=== PATIENT | male | born 1945 | race Caucasian/White ===

== ENCOUNTER 2020-05-01 07:44 | Observation (INO) | payer MEDICARE, OTHER ==
[2020-05-01] MEDS ORDERED: NITROGLYCERIN OINT 1 INCH/GM PACKET TOPICAL STA (07:52)
[2020-05-01] MEDS ORDERED: ASPIRIN 81 MG PO STA (07:52)
[2020-05-01 08:01] LABS: Glucose,Whole Blood 380 mg/dL (75-99)
--- NOTE | 2020-05-01 08:02 | ED ---
General Adult HPI - General Stated complaint: chest pain Time Seen by Provider: 05/01/20 07:47 Source: patient, EMS, RN notes reviewed Mode of arrival: EMS Limitations: no limitations - History of Present Illness Initial comments: Patient is a pleasant 75-year-old male presenting to the emergency Department with complaints of chest discomfort. Onset of symptoms was around 3 AM. Discomfort feels like indigestion or dull. Patient did have similar symptoms with heart attack just a week ago. Discomfort is mild at this time. No associated dyspnea, nausea, or diaphoresis. No radiation. No leg pain or swelling. - Related Data Home Medications Medication Instructions Recorded Confirmed Albuterol Inhaler [Ventolin Hfa 1 - 2 puff INHALATION RT-Q4H PRN 04/20/20 04/20/20 Inhaler] Aspirin EC [Ecotrin Low Dose] 81 mg PO DAILY 04/20/20 04/20/20 Insulin Detemir [Levemir Flextouch] 45 units SQ DAILY 04/20/20 04/20/20 Losartan Potassium 100 mg PO DAILY 04/20/20 04/20/20 Steriction D 1 tab PO BID 04/20/20 04/20/20 hydroCHLOROthiazide [Hydrodiuril] 25 mg PO DAILY 04/20/20 04/20/20 Previous Rx's Medication Instructions Recorded Clopidogrel [Plavix] 75 mg PO DAILY 30 Days #30 tab 04/22/20 Ezetimibe [Zetia] 10 mg PO DAILY 30 Days #30 tab 04/22/20 Isosorbide Mononitrate ER [Imdur] 30 mg PO DAILY 30 Days #30 04/22/20 tab.er.24h Metoprolol Tartrate [Lopressor] 25 mg PO BID 30 Days #30 tab 04/22/20 Nitroglycerin Sl Tabs [Nitrostat] 0.4 mg SUBLINGUAL Q5M PRN #30 tab 04/22/20 Omeprazole [PriLOSEC] 20 mg PO AC-BRKFST 30 Days #30 cap 04/22/20 Allergies Allergy/AdvReac Type Severity Reaction Status Date / Time caffeine AdvReac Rapid Verified 04/20/20 09:10 Heart Rate glipizide AdvReac Confusion Verified 04/20/20 09:10 insulin aspart AdvReac Hallucinati Verified 04/20/20 09:10 [From Novolog U-100 Insulin ons aspart] Imhdwhp-Edw-Dsg Reductase AdvReac Swelling Verified 04/20/20 09:10 Inhibitor Review of Systems ROS Statement: Those systems with pertinent positive or pertinent negative responses have been documented in the HPI. ROS Other: All systems not noted in ROS Statement are negative. Constitutional: Denies: fever Eyes: Denies: eye pain ENT: Denies: ear pain Respiratory: Denies: cough Cardiovascular: Reports: chest pain Endocrine: Denies: fatigue Gastrointestinal: Denies: abdominal pain Genitourinary: Denies: dysuria Musculoskeletal: Denies: back pain Skin: Denies: rash Neurological: Denies: weakness Past Medical History Past Medical History: Diabetes Mellitus, Hypertension History of Any Multi-Drug Resistant Organisms: None Reported Past Surgical History: Appendectomy Past Psychological History: No Psychological Hx Reported Smoking Status: Former smoker Past Alcohol Use History: None Reported Past Drug Use History: None Reported General Exam Limitations: no limitations General appearance: alert, in no apparent distress Head exam: Present: normocephalic Eye exam: Present: normal appearance, PERRL Neck exam: Present: normal inspection Respiratory exam: Present: normal lung sounds bilaterally. Absent: chest wall tenderness Cardiovascular Exam: Present: regular rate, normal rhythm Expanded Peripheral pulses: 2+: Radial (R), Radial (L), Posterior Tibialis (R), Posterior Tibialis (L) GI/Abdominal exam: Present: soft. Absent: tenderness Extremities exam: Present: normal inspection. Absent: pedal edema, calf tenderness Neurological exam: Present: alert Psychiatric exam: Present: normal affect, normal mood Skin exam: Present: normal color Course Vital Signs 05/01/20 05/01/20 05/01/20 07:48 07:54 08:52 Temperature 98.0 F 98.0 F Pulse Rate 79 76 Pulse Rate [ 84 [place] ] Respiratory 16 16 Rate Blood Pressure 181/90 139/81 O2 Sat by Pulse 98 98 Oximetry EKG Findings - EKG Comments: EKG Findings:: Normal sinus rhythm at 79. W[place] 152. QRS 88. QT 372. QTC 426. Normal axis. Normal QRS. No acute ST change. Medical Decision Making - Medical Decision Making Patient reevaluated and resting comfortably in bed. Patient and family updated on results and plan. Case discussed in detail with Dr. Burdick, who will admit covering for this va patient - Lab Data Result diagrams: 05/01/20 08:02 05/01/20 08:02 Lab Results 05/01/20 05/01/20 05/01/20 Range/Units 07:59 08:02 08:02 WBC 6.1 (3.8-10.6) k/uL RBC 4.01 L (4.30-5.90) m/uL Hgb 11.6 L (13.0-17.5) gm/dL Hct 32.9 L (39.0-53.0) % MCV 82.0 (80.0-100.0) fL MCH 29.0 (25.0-35.0) pg MCHC 35.3 (31.0-37.0) g/dL RDW 14.0 (11.5-15.5) % Plt Count 288 (150-450) k/uL MPV 6.8 Neutrophils % 60 % Lymphocytes % 29 % Monocytes % 6 % Eosinophils % 3 % Basophils % 1 % Neutrophils # 3.7 (1.3-7.7) k/uL Lymphocytes # 1.8 (1.0-4.8) k/uL Monocytes # 0.4 (0-1.0) k/uL Eosinophils # 0.2 (0-0.7) k/uL Basophils # 0.0 (0-0.2) k/uL PT 9.7 (9.0-12.0) sec INR 0.9 (<1.2) APTT 19.8 L (22.0-30.0) sec Sodium (137-145) mmol/L Potassium (3.5-5.1) mmol/L Chloride (98-107) mmol/L Carbon Dioxide (22-30) mmol/L Anion Gap mmol/L BUN (9-20) mg/dL Creatinine (0.66-1.25) mg/dL Est GFR (CKD-EPI)AfAm (>60 ml/min/1.73 sqM) Est GFR (CKD-EPI)NonAf (>60 ml/min/1.73 sqM) Glucose (74-99) mg/dL POC Glucose (mg/dL) 380 H (75-99) mg/dL POC Glu [employer] ID Alirio Martinezil Calcium (8.4-10.2) mg/dL Magnesium (1.6-2.3) mg/dL Total Bilirubin (0.2-1.3) mg/dL AST (17-59) U/L ALT (4-49) U/L Alkaline Phosphatase (38-126) U/L Troponin I (0.000-0.034) ng/mL Total Protein (6.3-8.2) g/dL Albumin (3.5-5.0) g/dL 05/01/20 05/01/20 05/01/20 Range/Units 08:02 08:02 08:57 WBC (3.8-10.6) k/uL RBC (4.30-5.90) m/uL Hgb (13.0-17.5) gm/dL Hct (39.0-53.0) % MCV (80.0-100.0) fL MCH (25.0-35.0) pg MCHC (31.0-37.0) g/dL RDW (11.5-15.5) % Plt Count (150-450) k/uL MPV Neutrophils % % Lymphocytes % % Monocytes % % Eosinophils % % Basophils % % Neutrophils # (1.3-7.7) k/uL Lymphocytes # (1.0-4.8) k/uL Monocytes # (0-1.0) k/uL Eosinophils # (0-0.7) k/uL Basophils # (0-0.2) k/uL PT (9.0-12.0) sec INR (<1.2) APTT (22.0-30.0) sec Sodium 132 L (137-145) mmol/L Potassium 4.2 (3.5-5.1) mmol/L Chloride 96 L (98-107) mmol/L Carbon Dioxide 27 (22-30) mmol/L Anion Gap 9 mmol/L BUN 24 H (9-20) mg/dL Creatinine 0.83 (0.66-1.25) mg/dL Est GFR (CKD-EPI)AfAm >90 (>60 ml/min/1.73 sqM) Est GFR (CKD-EPI)NonAf 87 (>60 ml/min/1.73 sqM) Glucose 366 H (74-99) mg/dL POC Glucose (mg/dL) 382 H (75-99) mg/dL POC Glu [employer] Operator ID Calcium 9.5 (8.4-10.2) mg/dL Magnesium 1.3 L (1.6-2.3) mg/dL Total Bilirubin 0.9 (0.2-1.3) mg/dL AST 21 (17-59) U/L ALT 17 (4-49) U/L Alkaline Phosphatase 97 (38-126) U/L Troponin I <0.012 (0.000-0.034) ng/mL Total Protein 7.0 (6.3-8.2) g/dL Albumin 4.1 (3.5-5.0) g/dL - Radiology Data Radiology results: image reviewed (Chest x-ray shows no acute process) Disposition Clinical Impression: Chest pain Disposition: ADMITTED IP TO THIS HOSP Is patient prescribed a controlled substance at d/c from ED?: No Referrals: [facility],Clinic [Primary Care Provider] - 1-2 days Decision Time: 09:24
[2020-05-01 08:07] LABS: Basophils % (A) 1 %; Eosinophils # (A) 0.2 k/uL (0-0.7); Eosinophils % (A) 3 %; HCT 32.9 % (39.0-53.0); HGB 11.6 gm/dL (13.0-17.5); Lymphocytes # (A) 1.8 k/uL (1.0-4.8); Lymphocytes % (A) 29 %; MCHC 35.3 g/dL (31.0-37.0); Mean Platelet Volume 6.8; Monocytes # (A) 0.4 k/uL (0-1.0); Monocytes % (A) 6 %; Neutrophils # (A) 3.7 k/uL (1.3-7.7); Neutrophils % (A) 60 %; Platelet Count 288 k/uL (150-450); RBC 4.01 m/uL (4.30-5.90); WBC 6.1 k/uL (3.8-10.6)
[2020-05-01 08:19] LABS: ALT 17 U/L (4-49); AST 21 U/L (17-59); African American GFR (CKD) >90 (>60 ml/min/1.73 sqM); Albumin 4.1 g/dL (3.5-5.0); Alkaline Phosphatase 97 U/L (38-126); Anion Gap 9 mmol/L; Blood Urea Nitrogen 24 mg/dL (9-20); Calcium 9.5 mg/dL (8.4-10.2); Carbon Dioxide 27 mmol/L (22-30); Chloride 96 mmol/L (98-107); Glucose 366 mg/dL (74-99); Magnesium 1.3 mg/dL (1.6-2.3); Non-African American GFR(CKD) 87 (>60 ml/min/1.73 sqM); Potassium 4.2 mmol/L (3.5-5.1); Sodium 132 mmol/L (137-145); Total Bilirubin 0.9 mg/dL (0.2-1.3)
--- NOTE | 2020-05-01 08:19 | XR ---
EXAMINATION TYPE: XR chest 2V DATE OF EXAM: 05/01/2020 COMPARISON: Chest x-ray dated 04/20/2020 from outside institution HISTORY: Chest pain TECHNIQUE: Frontal and lateral views of the chest are obtained. FINDINGS: There is no focal air space opacity, pleural effusion, or pneumothorax seen. The cardiac silhouette size is within normal limits. The osseous structures are intact, there is thoracic spond ylosis. There are overlying cardiac leads. IMPRESSION: No acute cardiopulmonary process.
[2020-05-01 08:28] LABS: INR 0.9 (<1.2); Prothrombin Time 9.7 sec (9.0-12.0)
[2020-05-01 08:31] LABS: Partial Thromboplastin Time 19.8 sec (22.0-30.0)
[2020-05-01] MEDS ORDERED: MAGNESIUM OXIDE 400 MG TAB PO STA (08:56)
[2020-05-01 08:59] LABS: Glucose,Whole Blood 382 mg/dL (75-99)
[2020-05-01] MEDS ORDERED: NITROGLYCERIN SL TABS 0.4 MG TAB SUBLINGUAL PRN ×2 (09:24→12:41)
[2020-05-01 10:28] VITALS: RESP 16
[2020-05-01 11:45] LABS: Glucose,Whole Blood 283 mg/dL (75-99)
[2020-05-01] MEDS ORDERED: DICLOFENAC SODIUM GEL 100 GM TUBE TOPICAL PRN (12:41)
[2020-05-01] MEDS ORDERED: ALBUTEROL NEBULIZED 2.5 MG/3 ML INHALATION PRN (12:41)
--- NOTE | 2020-05-01 14:16 | P.HPIM ---
History of Present Illness Patient is a very pleasant 75-year-old male came in with compensative chest discomfort was started today morning it's not exactly pain patient is unable to clearly explain but there is some discomfort mostly in the epigastric area not related to food pain is nonpruritic in nature. It's on and off lasted for a few hours. It's mostly dull indigestion like sensation. Patient denied any shortness of breath lightheadedness. EKG normal sinus rhythm without any acute ST-T wave changes chest x-ray is within normal limits patient had any fever chills. Patient chest pain is nonexertional started when he was today playing video games. Patient had a cardiac catheterization recently which showed significant coronary artery disease in the circumflex, revascularization at times were unsuccessful and medical management was advised at that time. Patient had negative troponins. Review of Systems REVIEW OF SYSTEMS: CONSTITUTIONAL: No fever, no malaise, no fatigue. HEENT: No recent visual problems or hearing problems. Denied any sore throat. CARDIOVASCULAR: No orthopnea, PND, no palpitations, no syncope. PULMONARY: No shortness of breath, no cough, no hemoptysis. GASTROINTESTINAL: No diarrhea, no nausea, no vomiting, no abdominal pain. NEUROLOGICAL: No headaches, no weakness, no numbness. HEMATOLOGICAL: Denies any bleeding or petechiae. GENITOURINARY: Denies any burning micturition, frequency, or urgency. MUSCULOSKELETAL/RHEUMATOLOGICAL: Denies any joint pain, swelling, or any muscle pain. ENDOCRINE: Denies any polyuria or polydipsia. The rest of the 14-point review of systems is negative. Past Medical History Past Medical History: Diabetes Mellitus, Hypertension History of Any Multi-Drug Resistant Organisms: None Reported Past Surgical History: Appendectomy Past Psychological History: No Psychological Hx Reported Smoking Status: Former smoker Past Alcohol Use History: None Reported Past Drug Use History: None Reported Medications and Allergies Home Medications Medication Instructions Recorded Confirmed Type Albuterol Inhaler [Ventolin Hfa 1 - 2 puff INHALATION RT-Q4H PRN 04/20/20 05/01/20 History Inhaler] Aspirin EC [Ecotrin Low Dose] 81 mg PO DAILY 04/20/20 05/01/20 History Insulin Detemir [Levemir Flextouch] 45 units SQ DAILY 04/20/20 05/01/20 History Losartan Potassium 100 mg PO DAILY 04/20/20 05/01/20 History Steriction D 1 tab PO BID 04/20/20 05/01/20 History hydroCHLOROthiazide [Hydrodiuril] 25 mg PO DAILY 04/20/20 05/01/20 History Clopidogrel [Plavix] 75 mg PO DAILY 30 Days #30 tab 04/22/20 05/01/20 Rx Ezetimibe [Zetia] 10 mg PO DAILY 30 Days #30 tab 04/22/20 05/01/20 Rx Isosorbide Mononitrate ER [Imdur] 30 mg PO DAILY 30 Days #30 04/22/20 05/01/20 Rx tab.er.24h Metoprolol Tartrate [Lopressor] 25 mg PO BID 30 Days #30 tab 04/22/20 05/01/20 Rx Nitroglycerin Sl Tabs [Nitrostat] 0.4 mg SUBLINGUAL Q5M PRN #30 tab 04/22/20 05/01/20 Rx Omeprazole [PriLOSEC] 20 mg PO AC-BRKFST 30 Days #30 cap 04/22/20 05/01/20 Rx Diclofenac Sodium Gel [Voltaren 2 gm TOPICAL QID PRN 05/01/20 05/01/20 History Gel] Insulin Regular, Human [NovoLIN R] See Protocol SQ AC-TID 05/01/20 05/01/20 History amLODIPine [Norvasc] 2.5 mg PO DAILY 05/01/20 05/01/20 History Allergies Allergy/AdvReac Type Severity Reaction Status Date / Time caffeine AdvReac Rapid Verified 05/01/20 09:33 Heart Rate glipizide AdvReac Confusion Verified 05/01/20 09:33 insulin aspart AdvReac Hallucinati Verified 05/01/20 09:33 [From Novolog U-100 Insulin ons aspart] [id number] Reductase AdvReac Swelling Verified 05/01/20 09:33 Inhibitor Physical Exam Vitals: Vital Signs Temp Pulse Pulse Pulse Resp BP BP 05/01/20 10:16 98 F 74 16 171/85 05/01/20 09:51 98.0 F 79 18 129/84 05/01/20 08:52 98.0 F 76 16 139/81 05/01/20 07:54 84 05/01/20 07:48 98.0 F 79 16 181/90 Pulse Ox 05/01/20 10:16 99 05/01/20 09:51 97 05/01/20 08:52 98 05/01/20 07:54 05/01/20 07:48 98 Intake and Output 04/30/20 05/01/20 05/01/20 22:59 06:59 14:59 Other: Weight 83.461 kg PHYSICAL EXAMINATION: GENERAL: The patient is alert and oriented x3, not in any acute distress. Well developed, well nourished. HEENT: Pupils are round and equally reacting to light. EOMI. No scleral icterus. No conjunctival pallor. Normocephalic, atraumatic. No pharyngeal erythema. No thyromegaly. CARDIOVASCULAR: S1 and S2 present. No murmurs, rubs, or gallops. PULMONARY: Chest is clear to auscultation, no wheezing or crackles. ABDOMEN: Soft, nontender, nondistended, normoactive bowel sounds. No palpable organomegaly. MUSCULOSKELETAL: No joint swelling or deformity. EXTREMITIES: No cyanosis, clubbing, or pedal edema. NEUROLOGICAL: Gross neurological examination did not reveal any focal deficits. SKIN: No rashes. Results CBC & Chem 7: 05/01/20 08:02 05/01/20 08:02 Labs: Abnormal Lab Results - Last 24 Hours (Table) 05/01/20 05/01/20 05/01/20 Range/Units 07:59 08:02 08:02 RBC 4.01 L (4.30-5.90) m/uL Hgb 11.6 L (13.0-17.5) gm/dL Hct 32.9 L (39.0-53.0) % APTT 19.8 L (22.0-30.0) sec Sodium (137-145) mmol/L Chloride (98-107) mmol/L BUN (9-20) mg/dL Glucose (74-99) mg/dL POC Glucose (mg/dL) 380 H (75-99) mg/dL Magnesium (1.6-2.3) mg/dL 05/01/20 05/01/20 05/01/20 Range/Units 08:02 08:57 11:44 RBC (4.30-5.90) m/uL Hgb (13.0-17.5) gm/dL Hct (39.0-53.0) % APTT (22.0-30.0) sec Sodium 132 L (137-145) mmol/L Chloride 96 L (98-107) mmol/L BUN 24 H (9-20) mg/dL Glucose 366 H (74-99) mg/dL POC Glucose (mg/dL) 382 H 283 H (75-99) mg/dL Magnesium 1.3 L (1.6-2.3) mg/dL Thrombosis Risk Factor Assmnt - Choose All That Apply Any of the Below Risk Factors Present?: Yes Each Factor Represents 1 point: Obesity (BMI >25) Other Risk Factors: Yes Each Risk Factor Represents 2 Points: Age 61-74 years Other congenital or acquired thrombophilia - If yes, enter type in comment: No Thrombosis Risk Factor Assessment Total Risk Factor Score: 3 Thrombosis Risk Factor Assessment Level: Moderate Risk Assessment and Plan Plan: -Chest pain: Appears to be noncardiac and atypical testing his recent cardiac catheterization cardiology will evaluate the patient. Further management as per them. -Hyponatremia secondary to hydrochlorothiazide which will be held -Type 2 diabetes mellitus elevated uncontrolled blood sugars. Patient will be resumed on his home regimen titration depending on blood sugars during this hosp italization -Coronary artery disease with the sig significant atherosclerotic occlusive disease or complete and chronic occlusion of circumflex -Hypertension -Hypomagnesemia magnesium will be replaced -Gastroesophageal reflux disease
[2020-05-01] MEDS: NITROGLYCERIN OINT 1 INCH/GM PACKET TOPICAL SCH ×2 (14:29→17:20)
[2020-05-01] MEDS: MAGNESIUM SULFATE-D5W PMX 1 GM in DEXTROSE/WATER 1 100ML.BAG IVPB SCH ×3 (14:54→17:16)
[2020-05-01 15:12] VITALS: BP 153/77; PULSE 83; TEMP 98.3
--- NOTE | 2020-05-01 17:05 | P.CRDCN ---
History of Present Illness History of present illness: HISTORY OF PRESENTING ILLNESS This is a pleasant 75-year-old male past medical history significant for hypertension, hyperlipidemia, diabetes mellitus. He follows in the office with Dr. Gomez. We have been asked to see in consultation for chest discomfort. Patient was initially transferred from [facility] 04/20 secondary to episode of GERD-type heartburn and was found to have mildly elevated troponin at [facility]. Therefore he was transferred to [facility] where he had an echocardiogram performed which showed normal ejection fraction 55-60% with [id number] mitral regurgitation. He then had a heart catheterization which showed left main 20% stenosis, diagonal to with 70-80% stenosis, left circumflex was not visualized and appeared occluded proximally and a mid RCA 30- 40% stenosis. The circumflex was attempted be wired however this was unsuccessful and at the time patient was not having any active chest pain and therefore further intervention was aborted. Patient was discharged home on aspirin as well as Plavix and Imdur. Patient had been doing fairly well over the last week and a half however then noted a abnormal feeling in his chest, not like pain however just like a little bit of tightness. He states this is different than what he experienced 1.5 weeks ago. He took some nitroglycerin without any improvement. It slowly eased up on its own and it has not reoccurred since admission. Troponins were normal, EKG with normal sinus rhyt hm. DIAGNOSTICS EKG reveals sinus rhythm, no ST or T wave abnormalities. Chest xray no acute cardio pulmonary process. Laboratory reviewed, white blood cell 6.1, hemoglobin 11.6, platelets 288, sodiu m 132, creatinine 0.83, glucose 366, troponin negative 3. Current cardiac medications include Norvasc 2.5 mg daily, aspirin 325 mg daily, Plavix 75 mg daily, Saturday at 10 mg daily, Imdur 30 mg daily, losartan 100 mg daily, Lopressor 25 mg twice a day, nitroglycerin as needed. REVIEW OF SYSTEMS At the time of my exam: CONSTITUTIONAL: Denies fever or chills. CARDIOVASCULAR: + chest pain, no shortness of breath, orthopnea, PND or palpitations. RESPIRATORY: Denies cough. GASTROINTESTINAL: Denies abdominal pain, diarrhea, constipation, nausea or vomiting. MUSCULOSKELETAL: Denies myalgias. NEUROLOGIC: Denies numbness, tingling or weakness. ENDOCRINE: Denies fatigue, weight change, polydipsia or polyurina. GENITOURINARY: Denies burning, hematuria or urgency with micturation. HEMATOLOGIC: Denies history of anemia or bleeding. PHYSICAL EXAMINATION Blood pressure 153/77 heart rate 83 afebrile and maintaining oxygen saturation on room air. CONSTITUTIONAL: No apparent distress. HEENT: Head is normocephalic. Pupils are equal, round. Sclerae anicteric. Mucous membranes of the mouth are moist. No JVD. No carotid bruit. CHEST EXAMINATION: Lungs are clear to auscultation. No chest wall tenderness is noted on palpation or with deep breathing. HEART EXAMINATION: Regular rate and rhythm. S1, S2 heard. No murmurs, gallops or rub. ABDOMEN: Soft, nontender. Positive bowel sounds. EXTREMITIES: 2+ peripheral pulses, no lower extremity edema and no calf tenderness. NEUROLOGIC EXAMINATION: Patient is awake, alert and oriented x3. ASSESSMENT 1. Atypical chest pain which does not seem similar to his prior mild non-STEMI. Troponins normal and do not suspect cardiac in origin 2. Non-STEMI 04/20/2020 with heart catheterization showing 70-80% diagonal 2 stenosis and what appears to be 100% stenosis of circumflex however unable to wire 3. Essential hypertension 4. Diabetes mellitus type 2 5. Anemia PLAN Patient's discomfort appears atypical and feels like a mild tightness not suzanne lar to his prior GERD heartburn-type symptoms with his mild non-STEMI 1.5 weeks ago. Pain has resolved and troponins normal. Do not suspect cardiac etiology. Continue with current antianginals and dual antiplatelets as above. Patient appears stable for discharge home with follow-up with Dr. Gomez on Saturday as scheduled. Past Medical History Past Medical History: Diabetes Mellitus, Hypertension History of Any Multi-Drug Resistant Organisms: None Reported Past Surgical History: Appendectomy Past Psychological History: No Psychological Hx Reported Smoking Status: Former smoker Past Alcohol Use History: None Reported Past Drug Use History: None Reported Medications and Allergies Home Medications Medication Instructions Recorded Confirmed Type Albuterol Inhaler [Ventolin Hfa 1 - 2 puff INHALATION RT-Q4H PRN 04/20/20 05/01/20 History Inhaler] Aspirin EC [Ecotrin Low Dose] 81 mg PO DAILY 04/20/20 05/01/20 History Insulin Detemir [Levemir Flextouch] 45 units SQ DAILY 04/20/20 05/01/20 History Losartan Potassium 100 mg PO DAILY 04/20/20 05/01/20 History Steriction D 1 tab PO BID 04/20/20 05/01/20 History hydroCHLOROthiazide [Hydrodiuril] 25 mg PO DAILY 04/20/20 05/01/20 History Clopidogrel [Plavix] 75 mg PO DAILY 30 Days #30 tab 04/22/20 05/01/20 Rx Ezetimibe [Zetia] 10 mg PO DAILY 30 Days #30 tab 04/22/20 05/01/20 Rx Isosorbide Mononitrate ER [Imdur] 30 mg PO DAILY 30 Days #30 04/22/20 05/01/20 Rx tab.er.24h Metoprolol Tartrate [Lopressor] 25 mg PO BID 30 Days #30 tab 04/22/20 05/01/20 Rx Nitroglycerin Sl Tabs [Nitrostat] 0.4 mg SUBLINGUAL Q5M PRN #30 tab 04/22/20 05/01/20 Rx Omeprazole [PriLOSEC] 20 mg PO AC-BRKFST 30 Days #30 cap 04/22/20 05/01/20 Rx Diclofenac Sodium Gel [Voltaren 2 gm TOPICAL QID PRN 05/01/20 05/01/20 History Gel] Insulin Regular, Human [NovoLIN R] See Protocol SQ AC-TID 05/01/20 05/01/20 History amLODIPine [Norvasc] 2.5 mg PO DAILY 05/01/20 05/01/20 History Allergies Allergy/AdvReac Type Severity Reaction Status Date / Time caffeine AdvReac Rapid Verified 05/01/20 09:33 Heart Rate glipizide AdvReac Confusion Verified 05/01/20 09:33 insulin aspart AdvReac Hallucinati Verified 05/01/20 09:33 [From Novolog U-100 Insulin ons aspart] Udueizk-Eyf-Wrh Reductase AdvReac Swelling Verified 05/01/20 09:33 Inhibitor Physical Exam Vitals: Vital Signs Temp Pulse Pulse Pulse Resp BP BP 05/01/20 15:00 98.3 F 83 16 153/77 05/01/20 10:16 98 F 74 16 171/85 05/01/20 09:51 98.0 F 79 18 129/84 05/01/20 08:52 98.0 F 76 16 139/81 05/01/20 07:54 84 05/01/20 07:48 98.0 F 79 16 181/90 Pulse Ox 05/01/20 15:00 98 05/01/20 10:16 99 05/01/20 09:51 97 05/01/20 08:52 98 05/01/20 07:54 05/01/20 07:48 98 Intake and Output 05/01/20 05/01/20 05/01/20 06:59 14:59 22:59 Other: Weight 83.461 kg Results 05/01/20 08:02 05/01/20 08:02 Cardiac Enzymes 05/01/20 05/01/20 05/01/20 Range/Units 08:02 08:02 10:46 AST 21 (17-59) U/L Troponin I <0.012 <0.012 (0.000-0.034) ng/mL 05/01/20 Range/Units 14:18 AST (17-59) U/L Troponin I <0.012 (0.000-0.034) ng/mL Coagulation 05/01/20 Range/Units 08:02 PT 9.7 (9.0-12.0) sec APTT 19.8 L (22.0-30.0) sec CBC 05/01/20 Range/Units 08:02 WBC 6.1 (3.8-10.6) k/uL RBC 4.01 L (4.30-5.90) m/uL Hgb 11.6 L (13.0-17.5) gm/dL Hct 32.9 L (39.0-53.0) % Plt Count 288 (150-450) k/uL Comprehensive Metabolic Panel 05/01/20 Range/Units 08:02 Sodium 132 L (137-145) mmol/L Potassium 4.2 (3.5-5.1) mmol/L Chloride 96 L (98-107) mmol/L Carbon Dioxide 27 (22-30) mmol/L BUN 24 H (9-20) mg/dL Creatinine 0.83 (0.66-1.25) mg/dL Glucose 366 H (74-99) mg/dL Calcium 9.5 (8.4-10.2) mg/dL AST 21 (17-59) U/L ALT 17 (4-49) U/L Alkaline Phosphatase 97 (38-126) U/L Total Protein 7.0 (6.3-8.2) g/dL Albumin 4.1 (3.5-5.0) g/dL Current Medications Generic Name Dose Route Start Last Admin Trade Name Freq PRN Reason Stop Dose Admin Albuterol Sulfate 2.5 mg 05/01/20 12:41 Albuterol Nebulized 2.5 Mg/3 Ml INHALATION RT-Q4H PRN Shortness Of Breath Amlodipine Besylate 2.5 mg 05/02/20 09:00 Amlodipine 2.5 Mg Tab PO DAILY [facility] Aspirin 325 mg 05/02/20 09:00 Aspirin 325 Mg Tab PO DAILY [facility] Clopidogrel Bisulfate 75 mg 05/02/20 09:00 Clopidogrel 75 Mg Tab PO DAILY [facility] Diclofenac Sodium 2 gm 05/01/20 12:41 Diclofenac Sodium Gel 100 Gm Tube TOPICAL QID PRN Pain Ezetimibe 10 mg 05/02/20 09:00 Ezetimibe 10 Mg Tab PO DAILY [facility] Magnesium Sulfate/Dextrose 1 100 mls @ 100 mls/hr 05/01/20 15:00 05/01/20 16:00 gm/ IV Solution IVPB 05/01/20 17:59 100 mls/hr Q1H [facility] Administration Insulin Detemir 45 unit 05/02/20 07:00 Insulin Detemir (Levemir) 100 Unit/Ml Syr SQ DAILY@0700 [facility] Isosorbide Mononitrate 30 mg 05/02/20 09:00 Isosorbide Mononitrate Er 30 Mg Tab.Er.24h PO DAILY [facility] Losartan Potassium 100 mg 05/02/20 09:00 Losartan 50 Mg Tab PO DAILY [facility] Metoprolol Tartrate 25 mg 05/01/20 21:00 Metoprolol Tartrate 25 Mg Tab PO BID [facility] Nitroglycerin 0.4 mg 05/01/20 09:24 Nitroglycerin Sl Tabs 0.4 Mg Tab SUBLINGUAL Q5M PRN Chest Pain Nitroglycerin 1 inch 05/01/20 12:00 05/01/20 14:29 Nitroglycerin Oint 1 Inch/Gm Packet TOPICAL Not Given Q6HR [facility] Nitroglycerin 0.4 mg 05/01/20 12:41 Nitroglycerin Sl Tabs 0.4 Mg Tab SUBLINGUAL Q5M PRN Chest Pain Pantoprazole Sodium 40 mg 05/02/20 07:30 Pantoprazole 40 Mg Tablet PO AC-BRKFST [facility] Sodium Chloride 10 ml 05/01/20 21:00 Sodium Chloride 0.9% Flush 10 Ml Syringe IV BID [facility] Intake and Output 05/01/20 05/01/20 05/01/20 06:59 14:59 22:59 Other: Weight 83.461 kg Patient Weight 05/02/20 06:59 Weight 83.461 kg 05/01/20 08:02 05/01/20 08:02
[2020-05-01] MEDS ORDERED: METOPROLOL TARTRATE 25 MG TAB PO SCH (21:00)
[2020-05-02] MEDS ORDERED: INSULIN DETEMIR (LEVEMIR) 100 UNIT/ML SYR SQ SCH (07:00)
[2020-05-02] MEDS ORDERED: PANTOPRAZOLE 40 MG TABLET PO SCH (07:30)
[2020-05-02] MEDS ORDERED: LOSARTAN 50 MG TAB PO SCH (09:00)
[2020-05-02] MEDS ORDERED: ISOSORBIDE MONONITRATE ER 30 MG TAB.ER.24H PO SCH (09:00)
[2020-05-02] MEDS ORDERED: CLOPIDOGREL 75 MG TAB PO SCH (09:00)
[2020-05-02] MEDS ORDERED: EZETIMIBE 10 MG TAB PO SCH (09:00)
[2020-05-02] MEDS ORDERED: ASPIRIN 325 MG TAB PO SCH (09:00)
[2020-05-02] MEDS ORDERED: amLODIPine 2.5 MG TAB PO SCH (09:00)
--- NOTE | 2020-05-02 15:25 | P.DS ---
Providers Date of admission: 05/01/20 09:24 Expected date of discharge: 05/01/20 Attending physician: Racquel Burdick Consults: 05/01/20 09:24 Consult Physician Urgent Consulting Provider: Marquise Maria Consult Reason/Comments: cp Do you want consulting provider notified?: Yes Primary care physician: [facility] Course: Patient was later evaluated by cardiology the cleared for discharge patient was subsequently discharged please refer to HPI for further details. Plan - Discharge Summary Discharge Rx Participant: No New Discharge Prescriptions: No Action Insulin Detemir [Levemir Flextouch] 45 units SQ DAILY Aspirin EC [Ecotrin Low Dose] 81 mg PO DAILY hydroCHLOROthiazide [Hydrodiuril] 25 mg PO DAILY Losartan Potassium 100 mg PO DAILY Steriction D 1 tab PO BID Albuterol Inhaler [Ventolin Hfa Inhaler] 1 - 2 puff INHALATION RT-Q4H PRN PRN Reason: Shortness Of Breath Isosorbide Mononitrate ER [Imdur] 30 mg PO DAILY 30 Days #30 tab.er.24h Metoprolol Tartrate [Lopressor] 25 mg PO BID 30 Days #30 tab Nitroglycerin Sl Tabs [Nitrostat] 0.4 mg SUBLINGUAL Q5M PRN #30 tab PRN Reason: Chest Pain Clopidogrel [Plavix] 75 mg PO DAILY 30 Days #30 tab Ezetimibe [Zetia] 10 mg PO DAILY 30 Days #30 tab Omeprazole [PriLOSEC] 20 mg PO AC-BRKFST 30 Days #30 cap Insulin Regular, Human [NovoLIN R] See Protocol SQ AC-TID Diclofenac Sodium Gel [Voltaren Gel] 2 gm TOPICAL QID PRN PRN Reason: Pain amLODIPine [Norvasc] 2.5 mg PO DAILY Discharge Medication List Albuterol Inhaler [Ventolin Hfa Inhaler] 1 - 2 puff INHALATION RT-Q4H PRN 04/20/20 [History] Aspirin EC [Ecotrin Low Dose] 81 mg PO DAILY 04/20/20 [History] Insulin Detemir [Levemir Flextouch] 45 units SQ DAILY 04/20/20 [History] Losartan Potassium 100 mg PO DAILY 04/20/20 [History] Steriction D 1 tab PO BID 04/20/20 [History] hydroCHLOROthiazide [Hydrodiuril] 25 mg PO DAILY 04/20/20 [History] Clopidogrel [Plavix] 75 mg PO DAILY 30 Days #30 tab 04/22/20 [Rx] Ezetimibe [Zetia] 10 mg PO DAILY 30 Days #30 tab 04/22/20 [Rx] Isosorbide Mononitrate ER [Imdur] 30 mg PO DAILY 30 Days #30 tab.er.24h 04/22/20 [Rx] Metoprolol Tartrate [Lopressor] 25 mg PO BID 30 Days #30 tab 04/22/20 [Rx] Nitroglycerin Sl Tabs [Nitrostat] 0.4 mg SUBLINGUAL Q5M PRN #30 tab 04/22/20 [Rx] Omeprazole [PriLOSEC] 20 mg PO AC-BRKFST 30 Days #30 cap 04/22/20 [Rx] Diclofenac Sodium Gel [Voltaren Gel] 2 gm TOPICAL QID PRN 05/01/20 [History] Insulin Regular, Human [NovoLIN R] See Protocol SQ AC-TID 05/01/20 [History] amLODIPine [Norvasc] 2.5 mg PO DAILY 05/01/20 [History] Follow up Appointment(s)/Referral(s): Keven Gomez MD [Family Provider] - 1 Week (Keep your appointment on Saturday.) [facility] [Primary Care Provider] - 1-2 days (Office is currently closed, please call Saturday am to schedule your appointment.) Patient Instructions/Handouts: Chest Pain (DC) Discharge Disposition: HOME SELF-CARE
== END 2020-05-01 18:32 | disposition home or self-care (01) ==
LOC: EC 07:44 → SUPCPDRO 07:44 → 1SOBS 09:24
PROVIDERS: ADMIT Internal Medicine; ATTEND Internal Medicine
DX: R07.89 Other chest pain (principal); I21.4 Non-ST elevation (NSTEMI) myocardial infarction; E87.1 Hypo-osmolality and hyponatremia; T50.2X5A Adverse effect of carbonic-anhydrase inhibitors, benzothiadiazides and other diuretics, initial encounter; E83.42 Hypomagnesemia; E78.5 Hyperlipidemia, unspecified; I25.10 Atherosclerotic heart disease of native coronary artery without angina pectoris; E11.65 Type 2 diabetes mellitus with hyperglycemia; I10 Essential (primary) hypertension; I34.0 Nonrheumatic mitral (valve) insufficiency; K21.9 Gastro-esophageal reflux disease without esophagitis; M47.814 Spondylosis without myelopathy or radiculopathy, thoracic region; E66.9 Obesity, unspecified; Z68.28 Body mass index [BMI] 28.0-28.9, adult; R79.89 Other specified abnormal findings of blood chemistry; D64.9 Anemia, unspecified; Z79.82 Long term (current) use of aspirin; Z79.4 Long term (current) use of insulin; Z79.02 Long term (current) use of antithrombotics/antiplatelets; Z79.899 Other long term (current) drug therapy; Z88.8 Allergy status to other drugs, medicaments and biological substances; Z91.048 Other nonmedicinal substance allergy status; Z90.49 Acquired absence of other specified parts of digestive tract; Z87.891 Personal history of nicotine dependence
CPT/HCPCS: 96365; 96366; 99285; 36415; 93005; 80053; 83735; 84484; 85025; 85610; 85730; 71046; G0378; J3475

== ENCOUNTER → 2022-04-12 | Outpatient (CLI) | payer MEDICARE, OTHER ==
[2022-04-12 08:43] VITALS: BP 174/82; PULSE 81; RESP 18; TEMP 98.1
--- NOTE | 2022-04-12 09:23 | P.PAINCN ---
History of Present Illness - Reason for Consult Consult date: 04/12/22 Lumbar back pain - Chief Complaint Lumbar back pain - History of Present Illness Mr. Mahmood is a 77 year old pleasant male patient came to [facility] pain management clinic for initial evaluation for lumbar back pain, and pain radiating to right lower extremity. Patient described pain started more than a year ago. She also had a history of fall on his back in 1998 , as per patient he recovered completely from that injury. Patient described pain as aching, sharp, throbbing, spasm type of pain. Patient rated pain 7-8 out of 10 in severity. Which may very her pain level from 6-10 out of 10 in severity. His lumbar back pain radiating from lumbar back to the right lower extremity. Denied any weakness. Pain increases with activities, and standing, walking, sitting, bending forward, and lifting. Pain decreases with medications to some extent and exercises. Overall patient activities decreased secondary to pain. Pain medications helping to some extent. Because of the pain patient is feeling lack of sleep and interest and energy. Denied any bowel or bladder problems. Patient denies any adverse effects to medications. He is using walker as a walking aids for walking. Complaining depression secondary to pain but denied any suicidal/homicidal tendency at this time. Sleep pattern -some days altered secondary to pain. There are no signs of narcotic diversion/misuse/overuse and no new-onset weakness, bowel/bladder incontinence, saddle anesthesia, or no red flag symptoms. Conservative treatment tried: Lmyu-jbe-xpshphx medications, and Tylenol 3 Nceb-nis-togtzcu lidocaine patch Ice, and heat Physical therapy exercises, exercises at home as tolerated TENS unit's- helpful to some extent Chiropractic therapy- never tried Review of Systems All systems: negative Eyes: denies blurred vision, denies pain Ears, nose, mouth and throat: Denies headache, Denies sore throat Cardiovascular: Denies chest pain, Denies shortness of breath Respiratory: Denies cough Gastrointestinal: Denies abdominal pain, Denies diarrhea, Denies nausea, Denies vomiting Musculoskeletal: Reports low back pain, Reports shooting leg pain, Denies myalgias Integumentary: Denies pruritus, Denies rash Neurological: Denies numbness, Denies weakness Psychiatric: Denies anxiety Endocrine: Denies fatigue, Denies weight change Past Medical History Past Medical History: Diabetes Mellitus, Hypertension History of Any Multi-Drug Resistant Organisms: None Reported Past Surgical History: Appendectomy Past Psychological History: No Psychological Hx Reported Smoking Status: Former smoker Past Alcohol Use History: None Reported Past Drug Use History: None Reported Medications and Allergies Home Medications Medication Instructions Recorded Confirmed Type Albuterol Inhaler [Ventolin Hfa 1 - 2 puff INHALATION RT-Q4H PRN 04/20/20 05/01/20 History Inhaler] Aspirin EC [Ecotrin Low Dose] 81 mg PO DAILY 04/20/20 05/01/20 History Insulin Detemir [Levemir Flextouch 45 units SQ DAILY 04/20/20 05/01/20 History Pen] Losartan Potassium 100 mg PO DAILY 04/20/20 05/01/20 History Steriction D 1 tab PO BID 04/20/20 05/01/20 History hydroCHLOROthiazide [Hydrodiuril] 25 mg PO DAILY 04/20/20 05/01/20 History Clopidogrel [Plavix] 75 mg PO DAILY 30 Days #30 tab 04/22/20 05/01/20 Rx Ezetimibe [Zetia] 10 mg PO DAILY 30 Days #30 tab 04/22/20 05/01/20 Rx Isosorbide Mononitrate ER [Imdur] 30 mg PO DAILY 30 Days #30 04/22/20 05/01/20 Rx tab.er.24h Metoprolol Tartrate [Lopressor] 25 mg PO BID 30 Days #30 tab 04/22/20 05/01/20 Rx Nitroglycerin Sl Tabs [Nitrostat] 0.4 mg SUBLINGUAL Q5M PRN #30 tab 04/22/20 05/01/20 Rx Omeprazole [PriLOSEC] 20 mg PO AC-BRKFST 30 Days #30 cap 04/22/20 05/01/20 Rx Diclofenac Sodium Gel [Voltaren 2 gm TOPICAL QID PRN 05/01/20 05/01/20 History Gel] Insulin Regular, Human [NovoLIN R] See Protocol SQ AC-TID 05/01/20 05/01/20 History amLODIPine [Norvasc] 2.5 mg PO DAILY 05/01/20 05/01/20 History Allergies Allergy/AdvReac Type Severity Reaction Status Date / Time caffeine AdvReac Rapid Verified 04/12/22 08:44 Heart Rate glipizide AdvReac Confusion Verified 04/12/22 08:44 insulin aspart AdvReac Hallucinati Verified 04/12/22 08:44 [From Novolog U-100 Insulin ons aspart] Ybvcpfi-HQH-[id number] Reductase AdvReac Swelling Verified 04/12/22 08:44 Inhibitor [Ammdmsk-Rhb-Vss Reductase Inhibitor] Physical Exam General: Well-developed, well-nourished, no acute distress HEENT: Normocephalic, and atraumatic Neck: Supple, no neck swelling Psychiatric: Appropriate mood, and affect [employer] 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 Sensation grossly intact Lower extremity: Normal strength, and decreased range of motion secondary to pain on right lower extremity. Sensation grossly intact. Dorsalis pedis pulse 2+ , bilateral knee reflex, and ankle reflex 2+ Lumbar spine: Paravertebral tenderness: positive on right side Lumbar facet load test : positive on right side Sacroiliac joint tenderness: Positive on right side Thigh thrust test: Positive on right side SI joint compression test: Positive on right side Fabere test: Positive on the right side [ ] Results Comments: 4 review lumbosacral x-ray done on 11/08/2021 showed At disc degenerative disease, and facet arthropathy throughout the visualized spine. There is a grade 1 degenerative spondylolisthesis at L4-L5. Chronic anterior wedge deformity of L1 vertebral body. There is no discrete bony pathology. Lumbar spine MRI without contrast done on 02/24/2022 showed Multilevel spondylotic the degenerative changes at L1-L2, L2-L3 and L3-L4, L4- L5, and L5-S1 levels. More worse at L2-L3 with severe narrowing of the spinal canal, moderate narrowing at L4-L5 level. Very degrees of foraminal stenosis worst at L4-L5 with severe left, and moderate right foraminal narrowing Assessment and Plan Assessment: Lumbar spondylosis without myelopathy, and lumbar radiculopathy Lumbar spinal canal stenosis Lumbar neural foraminal narrowing more worse at L4-L5 level Right side sacroiliac joint dysfunction Right side hip arthralgia Plan: #1 Diagnoses, prognosis, and multiple treatment options including but not li mited to physical therapy, interventional therapy, adjunct medication therapy, narcotic medication, and surgical options were discussed with the patient. And all questions were answered to the patient's satisfaction. #2 treatment plan agreement : Patient was thoroughly discussed regarding the treatment options, alternatives, and importance of exercises as tolerated. Patient clearly understood. #3 Patient was counseled on importance of regular exercise. Including kelvin chi, aerobic exercises as tolerated. Which helps for chronic pain, and overall well- being. #4 investigations: MAPS- reviewed , urine drug test- none #5 diagnostic tests: Right hip x-rays at [facility], as per patient he is going to get his right hip x-ray, and MRI #6 consultation : None at this time # 7 interventional procedures: Right sided L4-L5 lumbar epidural steroid injection . Procedure, complications, alternatives discussed with the patient. #8 medications #1 Tylenol 3 one tablet per day as needed for pain from [facility] Medication side effects, complications, long-term consequences discussed with the patient. Patient recommended to contact the pain clinic if noticed any issues with given medications. #9 morphine milligrams equivalents dose ( MME) per day: 0 from the pain clinic. # 10 TENS unit's, and percussion massage device #11 disposition: scheduled to follow up with pain clinic in 4 weeks duration. Time with Patient: Less than 30 PQRS Measure Charge Sheet Measure #130: Documentation of Current Meds in Medical Chart: Patient's medications documented in chart Measure #226: Tobacco Use: Screen & Cessation Intervention: Pt not a tobacco user Measure #111: Pneumonia Vaccination: Pneumococcal vaccine administered or previously received Measure #47: Advance Care Plan: Advance care planning discussed & documented, plan or surrogate given Measure #412: Opioid Treatment Agreement: No documentation of signed opioid treatment agreement Measure #408: Opioid Therapy Follow-up Evaluation: Patient had NO f/u eval minimum every 3 months during opioid therapy Measure #317: Preventitive Care & Scrn High Bld Press & F/U: Pre-hypertensive or hypertensive BP documented, pt will f/u with PCP Measure #128: Body Mass Index (BMI) Screening & Follow-up: BMI documented within normal parameters (he and I have represcribed him and uses WHEN he is is down in a recliner or lying down. He seasonal need is to be quite normal) Measure #131: Pain Assessment & Follow-up: Pain positive & plan documented Measure #431: Unhealthy Alcohol Use Preventative Care & Scrn: Patient not identified as an unhealthy alcohol user - Pain Location Right Lower Back Non-Pharmacological Interventions: Heat, Ice, Inactivity, Massage, Physical Therapy, Sitting Pharmacological Interventions: Scheduled Medication, Topical Medication Home Medications: Ambulatory Orders Albuterol Inhaler [Ventolin Hfa Inhaler] 1 - 2 puff INHALATION RT-Q4H PRN 04/20/20 Aspirin EC [Ecotrin Low Dose] 81 mg PO DAILY 04/20/20 Insulin Detemir [Levemir Flextouch Pen] 45 units SQ DAILY 04/20/20 Losartan Potassium 100 mg PO DAILY 04/20/20 Steriction D 1 tab PO BID 04/20/20 hydroCHLOROthiazide [Hydrodiuril] 25 mg PO DAILY 04/20/20 Clopidogrel [Plavix] 75 mg PO DAILY 30 Days #30 tab 04/22/20 Ezetimibe [Zetia] 10 mg PO DAILY 30 Days #30 tab 04/22/20 Isosorbide Mononitrate ER [Imdur] 30 mg PO DAILY 30 Days #30 tab.er.24h 04/22/20 Metoprolol Tartrate [Lopressor] 25 mg PO BID 30 Days #30 tab 04/22/20 Nitroglycerin Sl Tabs [Nitrostat] 0.4 mg SUBLINGUAL Q5M PRN #30 tab 04/22/20 Omeprazole [PriLOSEC] 20 mg PO AC-BRKFST 30 Days #30 cap 04/22/20 Diclofenac Sodium Gel [Voltaren Gel] 2 gm TOPICAL QID PRN 05/01/20 Insulin Regular, Human [NovoLIN R] See Protocol SQ AC-TID 05/01/20 amLODIPine [Norvasc] 2.5 mg PO DAILY 05/01/20
== END ==
LOC: PNWHC3 08:06
DX: M47.26 Other spondylosis with radiculopathy, lumbar region (principal); M48.061 Spinal stenosis, lumbar region without neurogenic claudication; M46.1 Sacroiliitis, not elsewhere classified; M25.551 Pain in right hip; E11.9 Type 2 diabetes mellitus without complications; I10 Essential (primary) hypertension; Z79.4 Long term (current) use of insulin; Z79.899 Other long term (current) drug therapy; Z88.8 Allergy status to other drugs, medicaments and biological substances; Z91.018 Allergy to other foods
CPT/HCPCS: 99211

== ENCOUNTER 2022-07-17 09:27 | Day surgery (SDC) | payer OTHER ==
[~2022-07-17 09:27] MED LIST: LACTATED RINGERS 1,000 ML IV SCH; LIDOCAINE 1% (10MG/ML) FOR IV START INTRADERMA PRN
[2022-07-17 10:17] VITALS: RESP 16; TEMP 97.8
[2022-07-17 10:21] LABS: Glucose,Whole Blood 124 mg/dL (70-110)
[2022-07-17] MEDS ORDERED: IOPAMIDOL M200 10 ML VIAL ONE (10:31)
[2022-07-17] MEDS ORDERED: methylPREDNISolone ACETATE 40 MG/ML 1 ML VIAL ONE (10:31)
--- NOTE | 2022-07-17 10:40 | P.PCN ---
Date of Procedure: 07/17/22 Procedure(s) Performed: PREOPERATIVE DIAGNOSIS: 1- Lumbar Degenerative Disc Diseases 2-Lumbar spondylosis with Facet arthropathy without myelopathy. 3-lumbar spinal stenosis POSTOPERATIVE DIAGNOSIS: 1-lumbar degenerative disc disease. 2-lumbar spondylosis with facet arthropathy without myelopathy. 3-lumbar spinal stenosis. PROCEDURE 1. Lumbar epidural steroid injection under fluoroscopic guidance at the L4-5 level. ( right paramedial approach ) (Fluoroscopy imaging was available in radiology department) 2. Lumbar epidurogram. ANESTHESIA: Local anesthesia with lidocaine 1% 3 mL only EBL: Minimal PROCEDURE INDICATION: The patient with low back pain and radiculitis symptoms unresponsive to conservative treatment. Fluoroscopy was used to optimize visualization of the needle placement and to maximize safety. PROCEDURE DESCRIPTION / TECHNIQUE: The patient was seen and identified in the preoperative area. Risks, benefits, complications including but not limited to infections ,bleeding ,allergic reaction to the medications ,nerve damage and not complete pain releife , and alternatives were discussed with the patient. The patient agreed to proceed with the procedure and signed the consent. IV was started, and vital signs were stable. Patient was taken to the OR and time out was completed. The patient was placed in the prone position on procedure table and a pillow was placed under the abdomen to reduce lumbar lordosis. The lumbosacral area was prepped and draped in the usual sterile fashion.ere closely monitored during the procedure. Vital signs was monitered during the entire procedure. Using anterior-posterior fluoroscopy, the L4-5 interlaminar space was identified and the skin over this site was marked and then infiltrated with 1% lidocaine subcutaneously. Subsequently, a 20-gauge Tuohy epidural needle was inserted ( right paramedial approach ) and advanced toward the epidural space using the ``Loss of resistance technique and guided by AP and lateral fluoroscopy. The correct needle position in the epidural space was verified with the injection of 2 mL of the water soluble contrast dye Isovue 200 contrast and observing an excellent epidurogram with the epidural spread of the dye, after negative aspiration for blood and CSF and in the absence of paresthesias. Again after negative aspiration, a 6 ml mixture containing 40 mg of Depo-medrol ( Preservetive Free ), and 2 ml of preservative free Normal Saline, and 2 ml of preservative free lidocaine 1% solution was injected and a washout of epidurogram was seen. Needle was withdrawn intact, skin was cleansed, and bandages were applied. COMPLICATIONS: None DISPOSITION / PLANS: The patient was placed in a supine position and transferred to the recovery area in a stable condition for observation. There was no evidence of lower extremity motor or sensory deficit after the procedure. Patient was discharged from the recovery room after meeting discharge criteria. Home discharge instructions were given to the patient by the staff. The patient was reexamined prior to discharge. The patient will schedule a follow up in the clinic in 2-4 weeks.
--- NOTE | 2022-07-17 10:56 | FL ---
Intraoperative/procedural fluoroscopic services were provided for lumbar epidural steroid injection. Total fluoroscopy time is 2 seconds with a total of 1 submitted image to PACS. Total DAP [id number]. Ple ase see the operative note for further details.
[2022-07-17 11:03] VITALS: BP 148/80; PULSE 83
== END 2022-07-17 11:02 | disposition home or self-care (01) ==
LOC: ORPAIN 09:27
PROVIDERS: ATTEND Specialist
DX: M51.16 Intervertebral disc disorders with radiculopathy, lumbar region (principal); M47.26 Other spondylosis with radiculopathy, lumbar region; M48.061 Spinal stenosis, lumbar region without neurogenic claudication; Z88.8 Allergy status to other drugs, medicaments and biological substances
CPT/HCPCS: 62323; J1030; Q9966

== ENCOUNTER → 2022-08-13 | Outpatient (CLI) | payer OTHER ==
[2022-08-13 13:02] VITALS: BP 154/78; PULSE 97; RESP 18; TEMP 97.6
--- NOTE | 2022-08-13 15:15 | P.PAINPG ---
PQRS Measure Charge Sheet Comment: A 77 yr old male w at side with a history of severe and chronic LBP x yrs secondary to lumbar DDD and spondylosis with facet arthropathy without myelopathy presents today for evaluation s/p R paramedian MARK L4-L5. Pt states he received 0% pain relief. Pain level is provoked at 9 /10 in intensity, cons tant, localized in the lumbar spine, sorep in character w shooting towards the R hip and RLE. Pain is provoked by walking for periods of 10 min or more. Pain is alleviated with PT integrated w massage x 6 wks in Fall 2021, chiropractic treatments weekly x 1 mo in Jun 2022 without relief, heat, hot showers, medications, topical, repositioning and rest. Interventional pain procedures completed include MARK L4-L5 x1 Patient is currently on Ibu Patient denies any side effects of the medication(s), denies excessive drowsiness or sleepiness, denies suicidal ideation and reports that the current pain medication is helping to control the pain and improve activities of daily living. Patient denies any motor or sensory deficits. Patient denies any fever or night sweats, denies any change in the bowel movements or urination. Physical Examination: -Constitutional: Cooperative. Not in acute distress . - Neurologic: Cranial nerve II to XII intact. No focal neurological deficits. - Psychatric: Alert & oriented x 3. Matching mood & appropriate affect. Judgment and insight intact. - Musculoskeletal: Cervical spine: Muscle bulk/ tone/ strength in the bilateral upper extremities normal Vertebral body tenderness to palpation over Spurling test positive Distraction test positive Facet loading test positive TTP Thoracic spine Muscle bulk / tone/ strength in the bilateral paraspinal muscles normal Vertebral body tender to palpation over Facet loading test positive TTP Lumbar spine: Motor bulk/ tone/ strength lower extremities , thigh and legs : 5/5 Deep tendon reflexes : Normal Knee Jerk. Normal Ankle Jerk . Vertebral body tenderness to palpation over L4 Lumbar Facet Loading Test positive Straight Leg Raise: positive at 30 degrees right side/ left side Gaenslen's Test positive Sacral spine : Severe tenderness over the Sacroiliac joint: right side / left side Range of motion: Flexion of the lumbar spine <60 degrees Range of motion: Extension of the lumbar spine <20 degrees Gaenslen's Test positive right side / left side Leonard test: positive right side / left side Thigh Thrust Test positive right side / left side Sacral Thrust Test positive right side / left side Assessment and plan: Chronic LBP secondary to lumbar DDD, spondylosis with facet arthropathy without myelopathy Recommendation of R TFESI L4-L5 #2. May need a series of injections for optimal pain relief. Risks, benefits of procedure discussed and pt verbalized understanding. Admits to anticoagulant use or medical history of diabetes. Protocol for discontinuation/ continuation of medications hiram procedure discussed. All questions answered. I have spent less than 30 minutes on patient care today. Dr Corona was available by phone for the evaluation of this patient. The time was used to review the medical records including relevant urine studies and Prescription history (MAPs), review of the available imaging, evaluation and examination of the patient, coordination of care with the medical staff and if applicable referring physicians, as well as creation of the medical record PQRS Narrative: Hx Alcohol Use (MH) No Home Medications: Ambulatory Orders Albuterol Inhaler [Ventolin Hfa Inhaler] 1 - 2 puff INHALATION RT-Q4H PRN 04/20/20 Insulin Detemir [Levemir Flextouch Pen] 30 units SQ BID 04/20/20 Losartan Potassium 100 mg PO DAILY 04/20/20 hydroCHLOROthiazide [Hydrodiuril] 25 mg PO DAILY 04/20/20 Clopidogrel [Plavix] 75 mg PO DAILY 30 Days #30 tab 04/22/20 Ezetimibe [Zetia] 10 mg PO DAILY 30 Days #30 tab 04/22/20 Isosorbide Mononitrate ER [Imdur] 30 mg PO DAILY 30 Days #30 tab.er.24h 04/22/20 Diclofenac Sodium Gel [Voltaren Gel] 2 gm TOPICAL QID PRN 05/01/20 amLODIPine [Norvasc] 5 mg PO DAILY 05/01/20 Acetaminophen-Codeine 300-30mg [Tylenol w/codeine #3] 1 - 2 tab PO Q4-6H PRN 07/16/22 INSULIN ASPART (NovoLOG) [NovoLOG (formulary)] 10 unit SQ AC-BID 07/16/22 Metoprolol Succinate (ER) [Toprol Xl] 25 mg PO DAILY 07/16/22 Omeprazole [PriLOSEC] 20 mg PO AC-BRKFST PRN 07/16/22 Controlled Substance Measures - Controlled Substance Measures Is patient prescribed a controlled substance at discharge?: No
== END ==
LOC: PNWHC3 11:55
PROVIDERS: ATTEND Specialist
DX: M51.36 Other intervertebral disc degeneration, lumbar region (principal); M47.816 Spondylosis without myelopathy or radiculopathy, lumbar region; G89.29 Other chronic pain; Z88.8 Allergy status to other drugs, medicaments and biological substances
CPT/HCPCS: 99211

== ENCOUNTER 2022-11-06 07:08 | Day surgery (SDC) | payer OTHER ==
[2022-11-02 16:19] VITALS: BMI 28.4
[~2022-11-06 07:08] MED LIST changes: -LIDOCAINE 1% (10MG/ML) FOR IV START INTRADERMA PRN
[2022-11-06 07:49] LABS: Glucose,Whole Blood 181 mg/dL (70-110)
[2022-11-06 07:54] VITALS: TEMP 97.3
[2022-11-06] MEDS ORDERED: IOPAMIDOL M200 10 ML VIAL ONE (08:08)
[2022-11-06] MEDS ORDERED: methylPREDNISolone ACETATE 40 MG/ML 1 ML VIAL ONE (08:08)
--- NOTE | 2022-11-06 08:16 | P.PCN ---
Date of Procedure: 11/06/22 Procedure(s) Performed: PREOPERATIVE DIAGNOSIS: 1-Lumbar radiculopathy . 2-lumbar degenerative disc disease. 3-lumbar spondylosis with lumbar facet arthropathy without myelopathy POSTOPERATIVE DIAGNOSIS: 1-lumbar radiculopathy. 2-lumbar degenerative disc disease. 3-lumbar spondylosis with facet arthropathy without myelopathy PROCEDURE 1. Transforaminal epidural steroid injection under fluoroscopic guidance at right L4-5 level. (Fluoroscopy images stored on file in the radiology Department ) 2. Lumbar epidurogram . ANESTHESIA: Local with 1% lidocaine 3 ml. EBL: Minimal PROCEDURE INDICATION: The patient with low back pain and radiculopathy symptoms unresponsive to conservative treatment. PROCEDURE DESCRIPTION / TECHNIQUE: The patient was seen and identified in the preoperative area. Risks, benefits, complications, and alternatives were discussed with the patient. The patient agreed to proceed with the procedure and signed the consent. IV was started, and vital signs were stable. Patient was taken to the OR and time out was completed. The patient was placed in the prone position on procedure table and a pillow was placed under the abdomen to reduce lumbar lordosis. The lumbosacral area was prepped and draped in the usual sterile fashion. Critical pause was taken. Vital signs were closely monitored during the procedure. Using oblique fluoroscopy, the chin of the ``Santiago dog at Right L4-5 level was identified, and the skin and deeper tissues just below was localized with 1% lidocaine. Subsequently, a 22-gauge 3.5-inch spinal needle was advanced under a tunneled view fluoroscopic guidance just underneath the chin of the `[place]aly dog at the right L4-5 Under lateral fluoroscopy, the needle was then advanced to the posterior border of the interforaminal space. After negative aspiration of CSF and blood and with no paresthesias, 1 mL Isovue 200 contrast dye was injected excellent epidurogram and outlining of the nerve root Subsequently, 3 mL of block solution containing 40 mg Depo-Medrol and 2 mL of 0.9% normal saline PF was injected. Needle was removed . At the end of the procedure, skin was cleansed, and bandages were applied. COMPLICATIONS:none DISPOSITION / PLANS: The patient was placed in a supine position and transferred to the recovery area in a stable condition for observation. There was no evidence of lower extremity motor or sensory deficit after the procedure. Patient was discharged from the recovery room after meeting discharge criteria. Home discharge instructions were given to the patient by the staff. The patient was reexamined prior to discharge. Plavix last dose taken one week ago
--- NOTE | 2022-11-06 08:24 | FL ---
Intraoperative/procedural fluoroscopic services were provided right transforaminal lumbar injection. Total fluoroscopy time is 6.0 seconds with a total of 1 submitted image to PACS. Total DAP [id number] mG ym2. Please see the operative note for further details.
[2022-11-06 08:25] VITALS: RESP 16
[2022-11-06 08:41] VITALS: BP 133/79; PULSE 86
== END 2022-11-06 08:48 | disposition home or self-care (01) ==
LOC: ORPAIN 07:08
PROVIDERS: ATTEND Specialist
DX: M47.26 Other spondylosis with radiculopathy, lumbar region (principal); M51.16 Intervertebral disc disorders with radiculopathy, lumbar region; E11.9 Type 2 diabetes mellitus without complications; Z79.02 Long term (current) use of antithrombotics/antiplatelets; Z79.82 Long term (current) use of aspirin
CPT/HCPCS: 64483; J1030; Q9966

== ENCOUNTER → 2022-11-28 | Outpatient (CLI) | payer OTHER ==
[2022-11-28 10:18] VITALS: BP 104/68; PULSE 89; RESP 15; TEMP 97.5
--- NOTE | 2022-11-28 14:41 | P.PAINPG ---
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 Pt states he received 70% pain relief x 1 wk s/p procedure. Pain level is provoked at 6 /10 in intensity, constant, localized in the lumbar spine, sore in character w shooting towards the RLE. Pain is provoked by walking for periods of 10 min or more. Pain is alleviated with PT integrated w massage x 6 wks in Fall 2021, chiropractic treatments weekly x 1 mo in Jun 2022 without relief, heat, hot showers, medications, topical, repositioning and rest. Oswestry axial pain score of 19. Interventional pain procedures completed include R TFESI L4-L5 x1, R paramedian MARK L4-L5 x1 Patient is currently on Ibu Patient denies any side effects of the medication(s), denies excessive drowsiness or sleepiness, denies suicidal ideation and reports that the current pain medication is helping to control the pain and improve activities of daily living. Patient denies any motor or sensory deficits. Patient denies any fever or night sweats, denies any change in the bowel movements or urination. Physical Examination: -Constitutional: Cooperative. Not in acute distress . - Neurologic: Cranial nerve II to XII intact. No focal neurological deficits. - Psychatric: Alert & oriented x 3. Matching mood & appropriate affect. Judgment and insight intact. - Musculoskeletal: Cervical spine: Muscle bulk/ tone/ strength in the bilateral upper extremities normal Vertebral body tenderness to palpation over Spurling test positive Distraction test positive Facet loading test positive TTP Thoracic spine Muscle bulk / tone/ strength in the bilateral paraspinal muscles normal Vertebral body tender to palpation over Facet loading test positive TTP Lumbar spine: Motor bulk/ tone/ strength lower extremities , thigh and legs : 5/5 Deep tendon reflexes : Normal Knee Jerk. Normal Ankle Jerk . Vertebral body tenderness to palpation Lumbar Facet Loading Test positive over BL L4-L5, L5-S1 R > L Straight Leg Raise: positive at 30 degrees right side/ left side Gaenslen's Test positive Sacral spine : Severe tenderness over the Sacroiliac joint: right side / left side Range of motion: Flexion of the lumbar spine <60 degrees Range of motion: Extension of the lumbar spine <20 degrees Gaenslen's Test positive right side / left side Leonard test: positive right side / left side Thigh Thrust Test positive right side / left side Sacral Thrust Test positive right side / left side Assessment and plan: Chronic LBP secondary to lumbar DDD, spondylosis with facet arthropathy without myelopathy Recommendation of BL facet block of the medial branches BL L4-L5, L5-S1 #1. May need a series of injections, up until RFA, for optimal pain relief. Risks, benefits of procedure discussed and pt verbalized understanding. Admits to anticoagulant use or medical history of diabetes. Protocol for discontinuation/ continuation of medications hiram procedure discussed. Ventura 5/325mg #60 w 1 RF. Use, side effects, adverse reactions and safe storage discussed. Pt acknowledged understanding. All questions answered. I have spent less than 30 minutes on patient care today. Dr Corona was available by phone for the evaluation of this patient. The time was used to review the medical records including relevant urine studies and Prescription history (MAPs), review of the available imaging, evaluation and examination of the patient, coordination of care with the medical staff and if applicable referring physicians, as well as creation of the medical record PQRS Narrative: Hx Alcohol Use (MH) No Home Medications: Ambulatory Orders Albuterol Inhaler [Ventolin Hfa Inhaler] 1 - 2 puff INHALATION RT-Q4H PRN 04/20/20 Insulin Detemir [Levemir Flextouch Pen] 30 units SQ BID 04/20/20 Losartan Potassium 100 mg PO DAILY 04/20/20 Clopidogrel [Plavix] 75 mg PO DAILY 30 Days #30 tab 04/22/20 Ezetimibe [Zetia] 10 mg PO DAILY 30 Days #30 tab 04/22/20 Diclofenac Sodium Gel [Voltaren Gel] 2 gm TOPICAL QID PRN 05/01/20 INSULIN ASPART (NovoLOG) [NovoLOG (formulary)] 10 unit SQ AC-BID 07/16/22 Aspirin [Adult Low Dose Aspirin EC] 81 mg PO DAILY 11/02/22 Isosorbide Mononitrate [Imdur] 120 mg PO DAILY 11/02/22 amLODIPine 10 mg PO DAILY 11/02/22 carvediloL [Coreg] 6.25 mg PO BID 11/02/22 hydroCHLOROthiazide 0.5 tab PO DAILY 11/02/22 HYDROcodone/APAP 5-325MG [Ventura 5-325] 1 tab PO BID PRN 30 Days #60 tab 11/28/22 HYDROcodone/APAP 5-325MG [Ventura 5-325] 1 tab PO BID PRN 30 Days #60 tab 11/28/22 Controlled Substance Measures - Controlled Substance Measures Is patient prescribed a controlled substance at discharge?: Yes When asked, does pt state using other controlled substances?: Yes If prescribed controlled substance>3 days was MAPS reviewed?: Yes If Rx opioid, was Start Talking consent form obtained?: Yes Was information provided regarding opioid addiction?: Yes
== END ==
LOC: PNWHC3 09:31
PROVIDERS: ATTEND Specialist
DX: M51.36 Other intervertebral disc degeneration, lumbar region (principal); M47.816 Spondylosis without myelopathy or radiculopathy, lumbar region; G89.29 Other chronic pain; Z79.01 Long term (current) use of anticoagulants; Z91.018 Allergy to other foods; Z88.8 Allergy status to other drugs, medicaments and biological substances; Z79.82 Long term (current) use of aspirin; Z79.02 Long term (current) use of antithrombotics/antiplatelets
CPT/HCPCS: 99211